=== PATIENT | female | born 1965 | race Caucasian/White ===

== ENCOUNTER 2020-10-18 20:44 | Inpatient (IN) | payer OTHER, SELFPAY ==
[2020-10-18] MEDS ORDERED: MORPHINE 4 MG/ML SYR ONE (22:11)
[2020-10-18] MEDS ORDERED: ONDANSETRON 4 MG/2 ML VIAL ONE (22:11)
[2020-10-18 22:16] LABS: Absolute Lymphocytes (CBC) 2.2 K/uL (0.7-4.9); Basophils % 1.1 % (0-1.3); Hematocrit 31.7 % (36.0-45.0); Lymphocytes % 36.2 % (15.3-44.8); RBC Red Blood Cell Count 3.59 M/uL (3.86-4.86)
[2020-10-18 22:38] LABS: ALT/SGPT 130 U/L (12-78); AST/SGOT 131 U/L (15-37); Albumin 3.4 g/dL (3.4-5.0); Alkaline Phosphatase 124 U/L (45-117); BUN Blood Urea Nitrogen 14 mg/dL (7-18); Bicarbonate 28 mmol/L (21-32); Bilirubin Direct < 0.1 mg/dL (0-0.2); Bilirubin Total 0.2 mg/dL (0.2-1.0); CKMB Creatine Kinase MB < 1.0 ng/mL (1.0-3.6); Creatine Phosphokinase 75 U/L (26-192); Glucose Level 92 mg/dL (74-106); Lipase 95 U/L (73-393); Magnesium 2.4 mg/dL (1.8-2.4); Potassium 3.7 mmol/L (3.5-5.1); Protein, Total 7.1 g/dL (6.4-8.2); Sodium Level 142 mmol/L (136-145); Troponin (Emerg Dept Use Only) < 0.02 ng/mL (0.0-0.045)
[2020-10-18 22:46] LABS: Protime INR 0.86
[2020-10-18] MEDS ORDERED: FENTANYL CITR 100 MCG/2 ML ONE (22:57)
--- NOTE | 2020-10-18 23:14 | EDPHYS ---
Physician Documentation [facility] Name: Bonny Amaya Age: 54 yrs Sex: Female : 1965 Arrival Date: 10/18/2020 Time: 20:52 Bed 26 Private MD: ED Physician Anthony Mallory HPI: 10/18 23:24 This 54 yrs old Female presents to ER via Ambulatory with complaints of tw4 Passed Out Prior To Arrival, Fall Injury, Rib Pain. 23:24 The patient has experienced syncope. Onset: The symptoms/episode began/occurred today. tw4 Duration: This was a single episode. Associated injury: The patient did not suffer any apparent associated injury. Associated signs and symptoms: The patient has no apparent associated signs or symptoms. The patient has not experienced similar symptoms in the past. 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 - Social history:: Smoking status: Patient denies any tobacco usage or history of. Patient/guardian denies using alcohol, street drugs. ROS: 23:24 Neuro: Positive for syncope. tw4 23:24 Constitutional: Negative for fever, chills, and weight loss, Eyes: Negative for injury, tw4 pain, redness, and discharge, Respiratory: Negative for shortness of breath, cough, wheezing, and pleuritic chest pain, Abdomen/GI: Negative for abdominal pain, nausea, vomiting, diarrhea, and constipation, Back: Negative for injury and pain, MS/Extremity: Negative for injury and deformity, Skin: Negative for injury, rash, and discoloration. 23:24 Cardiovascular: Positive for chest pain, Negative for edema, orthopnea, palpitations, paroxysmal nocturnal dyspnea. Exam: 23:24 Constitutional: This is a well developed, well nourished patient who is awake, alert, tw4 and in no acute distress. Head/Face: Normocephalic, atraumatic. Cardiovascular: Regular rate and rhythm with a normal S1 and S2. No gallops, murmurs, or rubs. Normal PMI, no JVD. No pulse deficits. Respiratory: Lungs have equal breath sounds bilaterally, clear to auscultation and percussion. No rales, rhonchi or wheezes noted. No increased work of breathing, no retractions or nasal flaring. Abdomen/GI: Soft, non-tender, with normal bowel sounds. No distension or tympany. No guarding or rebound. No evidence of tenderness throughout. Back: No spinal tenderness. No costovertebral tenderness. Full range of motion. Skin: Warm, dry with normal turgor. Normal color with no rashes, no lesions, and no evidence of cellulitis. MS/ Extremity: Pulses equal, no cyanosis. Neurovascular intact. Full, normal range of motion. Neuro: Awake and alert, GCS 15, oriented to person, place, time, and situation. Cranial nerves II-XII grossly intact. Motor strength 5/5 in all extremities. Sensory grossly intact. Cerebellar exam normal. Normal gait. 23:24 Chest/axilla: Inspection: normal, Palpation: tenderness, that is moderate, of the left breast. Vital Signs: 21:15 BP 131 / 65; Pulse 78; Resp 20 S; Temp 98.4(O); Pulse Ox 97% on R/A; Weight 86.18 kg bb (R); Height 5 ft. 9 in. (175.26 cm) (R); Pain 9/10; 22:40 BP 100 / 62; Pulse 74; Resp 16; Pulse Ox 100% on R/A; zb 10/19 01:03 BP 106 / 66; Pulse 75; Resp 20 S; Temp 97.7(O); Pulse Ox 98% on R/A; Pain 6/10; bb 10/18 21:15 Body Mass Index 28.06 (86.18 kg, 175.26 cm) bb MDM: 10/18 21:15 Patient medically screened. tw4 23:24 Differential Diagnosis: aortic aneurysm, emotional response, GI bleed, idiopathic tw4 syncope, , vasovagal episode. Data reviewed: vital signs, nurses notes. Data interpreted: Pulse oximetry: Interpretation: normal. Counseling: I had a detailed discussion with the patient and/or guardian regarding: the historical points, exam findings, and any diagnostic results supporting the discharge/admit diagnosis. Physician consultation: Manish Machuca DO regarding admission, to the telemetry unit. patient's condition, and will see patient in ED. 10/18 21:04 Order name: Basic Metabolic Panel tw 10/18 21:04 Order name: CBC with Diff tw 10/18 21:04 Order name: Ckmb tw 10/18 21:05 Order name: CPK tw 10/18 21:05 Order name: Hepatic Function tw 10/18 21:05 Order name: Lipase tw 10/18 21:05 Order name: Magnesium tw 10/18 21:05 Order name: Protime (+inr) tw 10/18 21:05 Order name: Ptt, Activated tw 10/18 21:05 Order name: Troponin (emerg Dept Use Only) tw 10/18 21:05 Order name: Basic Metabolic Panel EDN[facility] 10/18 21:05 Order name: CKMB Creatine Kinase MB EDNJ 10/18 23:21 Order name: COVID-19 : Document "Date of Symptom Onset" if Symptomatic. tw4 10/18 21:04 Order name: CT Head C Spine tw4 10/18 21:05 Order name: EKG; Complete Time: 21:06 tw4 10/18 21:16 Order name: CT Chest Wo Con tw 10/19 00:45 Order name: CONS Physician Consult EDN[facility] 10/19 00:49 Order name: SARS-COV-2 RT PCR EDMS Administered Medications: 22:02 Drug: morphine 4 mg {Note: RASS +2.} Route: IVP; Site: left antecubital; zb 22:30 Follow up: Response: No adverse reaction; Pain is decreased; RASS: Alert and Calm (0) zb 22:03 Drug: Zofran (Ondansetron) 4 mg Route: IVP; Site: left antecubital; zb 22:34 Follow up: Response: No adverse reaction; Marked relief of symptoms; Nausea is decreasedzb 22:39 Drug: fentaNYL (PF) 50 mcg {Note: RASS +1.} Route: IVP; Site: left antecubital; zb 10/19 00:58 Follow up: Response: No adverse reaction bb Disposition: 10/18/20 23:14 Hospitalization ordered by Manish Machuca for Observation. Preliminary diagnosis is Syncope and collapse. - Bed requested for Telemetry/MedSurg (observation). - Status is Observation. bb - Condition is Stable. - Problem is an ongoing problem. - Symptoms have improved. Signatures: Dispatcher [employer] EDN[facility] Sona Maloney RN RN Zarina Philip RN RN Anthony Zuñiga MD MD tw4 Columba Caballero RN RN zb Corrections: (The following items were deleted from the chart) 10/18 23:26 23:24 Constitutional: Negative for fever, chills, and weight loss, Eyes: Negative for tw4 injury, pain, redness, and discharge, Cardiovascular: Negative for chest pain, palpitations, and edema, Respiratory: Negative for shortness of breath, cough, wheezing, and pleuritic chest pain, Abdomen/GI: Negative for abdominal pain, nausea, vomiting, diarrhea, and constipation, Back: Negative for injury and pain, MS/Extremity: Negative for injury and deformity, Skin: Negative for injury, rash, and discoloration, tw4 23:37 23:22 CORONAVIRUS ordered. [facility] 10/19 00:49 10/18 23:14 Hospitalization Ordered by Manihs Machuca DO for Observation. Preliminary mw diagnosis is Syncope and collapse. Bed requested for Telemetry/MedSurg (observation). Status is Observation. Condition is Stable. Problem is an ongoing problem. Symptoms have improved. tw4 10/19 01:44 00:49 10/18/2020 23:14 Hospitalization Ordered by Manish Machuca DO for Observation. bb Preliminary diagnosis is Syncope and collapse. Bed requested for Telemetry/MedSurg (observation). Status is Observation. Condition is Stable. Problem is an ongoing problem. Symptoms have improved. mw
--- NOTE | 2020-10-18 23:14 | ER ---
Nurse's Notes [facility] Name: Bonny Amaya Age: 54 yrs Sex: Female : 1965 Arrival Date: 10/18/2020 Time: 20:52 Bed 26 Private MD: Diagnosis: Syncope and collapse Presentation: 10/18 21:15 Chief complaint: Patient states: she has a history of syncopal episodes since she had bb gastric bypass a year ago with multiple falls and injuries last night pt had a syncopal episode and fell and is now having left sided rib pain 01/22. Coronavirus screen: At this time, the client does not indicate any symptoms associated with coronavirus-19. Ebola Screen: No symptoms or risks identified at this time. Initial Sepsis Screen: Does the patient meet any 2 criteria? No. Patient's initial sepsis screen is negative. Does the patient have a suspected source of infection? No. Patient's initial sepsis screen is negative. Risk Assessment: Do you want to hurt yourself or someone else? Patient reports no desire to harm self or others. Onset of symptoms was October 17, 2020. 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 - Social history:: Smoking status: Patient denies any tobacco usage or history of. Patient/guardian denies using alcohol, street drugs. Screenin:41 Fall Risk Fall in past 12 months (25 points). No secondary diagnosis (0 pts). IV access zb (20 points). Ambulatory Aid- None/Bed Rest/Nurse Assist (0 pts). Gait- Weak (10 pts.). Mental Status- Oriented to own ability (0 pts). Total Lanier Fall Scale indicates High Risk Score (45 or more points). Fall prevention measures have been instituted. Side Rails Up X 2 Placed Close to Nursing Station Frequent Obs/Assessments Occuring Family Present and informed to notify staff if the need to leave the bedside As available patient and family educated on Fall Prevention Program and Strategies. 21:41 Abuse screen: Denies threats or abuse. Denies injuries from another. Nutritional zb screening: No deficits noted. Tuberculosis screening: No symptoms or risk factors identified. Assessment: 21:20 General: Appears uncomfortable, Behavior is fussy. Pain: Complains of pain in diaphragm zb and left breast Pain does not radiate. Pain currently is 8 out of 10 on a pain scale. at worst was 10 out of 10 on a pain scale. Quality of pain is described as sharp, tender, Pain began 1 hour ago. Neuro: Level of Consciousness is awake, alert, obeys commands, Oriented to person, place, time, situation, Moves all extremities. Full function. Cardiovascular: Patient's skin is warm and dry. Respiratory: Airway is patent Respiratory effort is even, unlabored, Respiratory pattern is regular, symmetrical. GI: Abdomen is round Reports nausea. Derm: Skin is intact, is healthy with good turgor, Skin is dry, Skin is normal. Musculoskeletal: Circulation, motion, and sensation intact. Reports pain in left lateral anterior chest and left breast. 10/19 01:03 Reassessment: Patient is alert, oriented x 3, equal unlabored respirations, skin bb warm/dry/pink. pt continues to have left rib pain 6/10. IV site intact no erythema or edema noted. 01:06 Reassessment: report called to [facility] for room 207. bb Vital Signs: 10/18 21:15 BP 131 / 65; Pulse 78; Resp 20 S; Temp 98.4(O); Pulse Ox 97% on R/A; Weight 86.18 kg bb (R); Height 5 ft. 9 in. (175.26 cm) (R); Pain 9/10; 22:40 BP 100 / 62; Pulse 74; Resp 16; Pulse Ox 100% on R/A; zb 10/19 01:03 BP 106 / 66; Pulse 75; Resp 20 S; Temp 97.7(O); Pulse Ox 98% on R/A; Pain 6/10; bb 10/18 21:15 Body Mass Index 28.06 (86.18 kg, 175.26 cm) bb ED Course: 10/18 20:52 Patient arrived in ED. cf2 21:00 Columba Caballero RN is Primary Nurse. zb 21:02 Anthony Mallory MD is Attending Physician. tw4 21:17 Triage completed. bb 21:24 Arm band placed on Patient placed in an exam room, on a stretcher, on pulse oximetry. bb 21:41 Patient has correct armband on for positive identification. Placed in gown. Bed in low zb position. Call light in reach. secured entrance monitor on. Pulse ox on. NIBP on. Door closed. Noise minimized. 21:51 CT Head C Spine In Process Unspecified. EDMS 21:51 CT Chest Wo Con In Process Unspecified. EDMS 22:03 Initial lab(s) drawn, by me, sent to lab. Inserted saline lock: 20 gauge in left zb antecubital area, using aseptic technique. Blood collected. 23:13 Manish Machuca DO is Hospitalizing Provider. tw4 10/19 01:03 No provider procedures requiring assistance completed. Patient admitted, IV remains in bb place. Administered Medications: 10/18 22:02 Drug: morphine 4 mg {Note: RASS +2.} Route: IVP; Site: left antecubital; zb 22:30 Follow up: Response: No adverse reaction; Pain is decreased; RASS: Alert and Calm (0) zb 22:03 Drug: Zofran (Ondansetron) 4 mg Route: IVP; Site: left antecubital; zb 22:34 Follow up: Response: No adverse reaction; Marked relief of symptoms; Nausea is decreasedzb 22:39 Drug: fentaNYL (PF) 50 mcg {Note: RASS +1.} Route: IVP; Site: left antecubital; zb 10/19 00:58 Follow up: Response: No adverse reaction bb Outcome: 10/18 23:14 Decision to Hospitalize by Provider. tw4 10/19 01:04 Admitted to Tele accompanied by tech, via wheelchair, room 207, with chart. bb Condition: stable Instructed on the need for admit. 01:44 Patient left the ED. bb Signatures: Dispatcher [employer] Zarina Ball RN RN Anthony Zuñiga MD MD tw4 Armida Khalil 2 Columba Caballero RN RN zb Corrections: (The following items were deleted from the chart) 10/18 22:03 22:02 morphine 4 mg IVP in right antecubital zb zb 22:42 21:20 GI: Abdomen is round zb zb
[2020-10-19] MEDS ORDERED: DIPHENHYDRAMINE 25 MG TAB/CAP PO PRN (01:11)
[2020-10-19] MEDS ORDERED: ACETAMINOPHEN 500 MG TAB PO PRN (01:11)
[2020-10-19] MEDS ORDERED: ONDANSETRON 4 MG/2 ML VIAL IV PRN (01:11)
[2020-10-19 01:47] VITALS: BMI 29.4
[2020-10-19] MEDS: NA CHLORIDE 0.9% 1,000 ML IV SCH ×2 (01:51→20:37)
[2020-10-19] MEDS: FENTANYL CITR 100 MCG/2 ML IV PRN ×4 (02:02→21:16)
--- NOTE | 2020-10-19 02:20 | P.HP ---
Certification for Inpatient Patient admitted to: Observation With expected LOS: <2 Midnights Patient will require the following post-hospital care: None Practitioner: I am a practitioner with admitting privileges, knowledge of patient current condition, hospital course, and medical plan of care. Services: Services provided to patient in accordance with Admission requirements found in Title 42 Section 412.3 of the Code of Federal Regulations Patient History Date of Service: 10/19/20 Reason for admission: syncope History of Present Illness: Ms. Amaya is a 54 yo F with asthma, RA, DM, RLS, and dysautonomia (after gastric bypass surgery) here today for syncopal episode. She reports pain in her ribs and her back. She says she falls without warning. Family members say that before episodes, she starts to slur her words, kadeem lsay her legs hurt, and that she is thirsty. If she loses consciousness, it's for 30 seconds to 1 minute. Afterwards, she will be fatigued for ~3 hours and will not have recollection of the event. Her believes episodes are more frequent with stress and lack of sleep. Episodes occur 3-5x a week. She has been told the dysautonomia is a side effect of losing weight too fast after gastric bypass surgery. She had a positive tilt table test and has been ruled out for POTS. H/H 10.8. AST 131, ALT 130. Allergies aspirin Allergy (Verified 10/19/20 01:53) Hives bee pollen Allergy (Verified 10/19/20 01:14) Hives furosemide Allergy (Verified 10/19/20 01:53) Hives ibuprofen Allergy (Verified 10/19/20 01:14) Hives - Past Medical/Surgical History Has patient received pneumonia vaccine in the past: No Diabetic: Yes -: asthma -: Rheumathoid arthritis -: restless leg syndrome -: dysautonomia -: DM -: gastric bypass -: tubal ligation -: dissectomy lower back -: hernial tendon -: carpal tunnel -: pins and screws on clavicle -: appy -: cholecystectomy - Family History Father -: Heart disease Mother -: Diabetes Sister Notes: RA - Social History Smoking Status: Never smoker Alcohol use: No CD- Drugs: No Caffeine use: Yes Place of Residence: Home Review of Systems 10-point ROS is otherwise unremarkable Musculoskeletal: Back Pain, Other (rib paini) Physical Examination - Vital Signs Temperature: 97.1 F Blood Pressure: 110/53 Pulse: 77 Respirations: 16 Pulse Ox (%): 93 - Physical Exam General: Alert, In no apparent distress HEENT: Atraumatic, PERRLA, Mucous membr. moist/pink, EOMI, Sclerae nonicteric Neck: Supple, 2+ carotid pulse no bruit, No LAD, Without JVD or thyroid abnormality Respiratory: Clear to auscultation bilaterally, Normal air movement Cardiovascular: Regular rate/rhythm, Normal S1 S2 Gastrointestinal: Normal bowel sounds, No tenderness Musculoskeletal: No clubbing, No swelling, No contractures, No erythema, No warmth, Tenderness Integumentary: No rashes, No breakdown, No significant lesion, No erythema, No warmth, No cyanosis, Tenderness/swelling Neurological: Normal gait, Normal speech, Normal strength at 5/5 x4 extr, Normal tone, Normal affect - Studies Laboratory Data (last 24 hrs) 10/18/20 22:01: PT 9.9, INR 0.86, APTT 26.1 10/18/20 22:01: WBC 6.20, Hgb 10.8 L, Hct 31.7 L, Plt Count 267 10/18/20 22:01: Sodium 142, Potassium 3.7, BUN 14, Creatinine 0.54 L, Glucose 92, Magnesium 2.4, Total Bilirubin 0.2, AST 131 H, ALT 130 H, Alkaline Phosphatase 124 H, Lipase 95 Assessment and Plan - Problems (Diagnosis) (1) Asthma Current Visit: Yes Status: Chronic Qualifiers: Asthma severity: unspecified severity Asthma persistence: unspecified Asthma complication type: uncomplicated Qualified Code(s): J45.909 - Unspecified asthma, uncomplicated (2) Rheumatoid arthritis Current Visit: Yes Status: Chronic Qualifiers: Rheumatoid arthritis location: unspecified site Rheumatoid factor presence: unspecified presence Qualified Code(s): M06.9 - Rheumatoid arthritis, unspecified (3) T2DM (type 2 diabetes mellitus) Current Visit: Yes Status: Chronic Qualifiers: Diabetes mellitus detention insulin use: without rodent exterminator use Diabetes mellitus complication status: without complication Qualified Code(s): E11.9 - Type 2 diabetes mellitus without complications (4) RLS (restless legs syndrome) Current Visit: Yes Status: Chronic (5) Dysautonomia Current Visit: Yes Status: Chronic - Plan neurology consulted cardiology consulted orthostatic vital signs in the AM on telemetry anemia workup hepatitis panel pending pain management as needed reconcile and continue home medications Discharge Plan: Home Plan to discharge in: 24 Hours - Advance Directives Does patient have a Living Will: No Does patient have a Durable POA for Healthcare: No - Code Status/Comfort Care Code Status Assessed: Yes (full code) Critical Care: No Time Spent Managing Pts Care (In Minutes): 70
[2020-10-19 04:56] LABS: Absolute Lymphocytes (CBC) 1.4 K/uL (0.7-4.9); Basophils % 0.8 % (0-1.3); Lymphocytes % 31.6 % (15.3-44.8)
[2020-10-19 05:09] LABS: Ferritin 133.5 ng/mL (8-388); Folic Acid, (Folate) > 20.0 ng/mL (3.1-17.5); Transferrin 278 mg/dL (200-360)
[2020-10-19 05:20] LABS: Albumin 3.3 g/dL (3.4-5.0); Alkaline Phosphatase 160 U/L (45-117); BUN Blood Urea Nitrogen 12 mg/dL (7-18); Bicarbonate 33 mmol/L (21-32); Bilirubin Total 0.3 mg/dL (0.2-1.0); Glucose Level 88 mg/dL (74-106); HDL Cholesterol 43 mg/dL (40-60); LDL Cholesterol, Calculated 78 (<130); Potassium 4.4 mmol/L (3.5-5.1); Protein, Total 6.7 g/dL (6.4-8.2); Sodium Level 144 mmol/L (136-145)
[2020-10-19 05:22] LABS: ALT/SGPT 524 U/L (12-78); AST/SGOT 870 U/L (15-37)
[2020-10-19 06:52] LABS: Creatine Phosphokinase 76 U/L (26-192)
[2020-10-19] MEDS ORDERED: HYDROCODONE/APAP 7.5/325 MG TAB PO PRN (07:18)
[2020-10-19] MEDS ORDERED: TRAMADOL HCL 50 MG TAB PO PRN (07:18)
[2020-10-19] MEDS: INSULIN -REGULAR HUMAN 50 UNIT/0.5 ML ML SQ SCH ×4 (07:30→20:40)
[2020-10-19] MEDS: ENOXAPARIN 40 MG/0.4 ML SQ SCH (09:00)
[2020-10-19 09:33] LABS: Urine Appearance CLEAR (Clear); Urine Bilirubin NEGATIVE (Negative); Urine Blood NEGATIVE (Negative); Urine Color YELLOW (Yellow); Urine Glucose NEGATIVE (Negative); Urine Protein NEGATIVE (Negative); Urine Specific Gravity >=1.030 (1.005-1.030); Urine pH 6.5 (5.0-7.0)
[2020-10-19] MEDS: FLUOXETINE 20 MG CAP PO SCH (09:41)
[2020-10-19] MEDS: FOLIC ACID 1 MG TABLET PO SCH (09:42)
[2020-10-19] MEDS: PRAMIPEXOLE 1 MG TAB PO SCH (09:42)
[2020-10-19 10:22] LABS: Urine Microscopic Reflex NO UMIC
[2020-10-19 10:56] LABS: Barbiturates NEGATIVE (NEGATIVE); Benzodiazepines NEGATIVE (NEGATIVE); Cocaine NEGATIVE (NEGATIVE); METHAMPHETAM NEGATIVE (NEGATIVE); Methadone NEGATIVE (NEGATIVE); Opiates POSITIVE (NEGATIVE); Phencyclidine NEGATIVE (NEGATIVE); THC Cannibis NEGATIVE (NEGATIVE)
--- NOTE | 2020-10-19 11:04 | RAD REPORT ---
EXAM DESCRIPTION: CT - Abdomen Pelvis W/Wo Contrast - 10/19/2020 8:06 am CLINICAL HISTORY: Abdominal pain/elevated liver function tests COMPARISON: None TECHNIQUE: Computed axial tomography of the abdomen and pelvis was obtained. Unenhanced and enhanced images were taken. 100 cc Isovue 300 was administered intravenously. Images were obtained in arteria l, venous and delayed phases. Coronal reconstruction was performed. Oral contrast was not given limit evaluation of bowel All CT scans are performed using dose optimization technique as appropriate and may include automated exposure control or mA/KV adjustment according to patient size. FINDINGS: Mild fatty liver The Spleen, pancreas, adrenals and kidneys appear unremarkable. Postsurgical changes involve the stomach. No adnexal mass noted. No evidence diverticulitis cholecystectomy. Biliary tree normal caliber IMPRESSION: Mild fatty liver
--- NOTE | 2020-10-19 11:47 | RAD REPORT ---
EXAM DESCRIPTION: CT - Head C Spine Mpr Wo Con - 10/19/2020 9:18 am CLINICAL HISTORY: Syncope and fall. TECHNIQUE: Axial, coronal, and sagittal images through the brain were performed in the absence of in travenous contrast. CT of the cervical spine was performed without contrast. Axial, coronal, and sagittal reconstructions were created and sent to PACS. These exams were performed according to our departmental dose-optimization program which includes use of Automated Exposure Control, adjustment of the mA and/or kV according to patient size and/or use o f iterative reconstruction technique. COMPARISON: None. FINDINGS: CT Head: The brain parenchyma appears unremarkable. There is no intra-axial or extra-axial bleed seen. There i s no mass or mass effect. The ventricles are normal in size shape and configuration. The orbital cont ents appear unremarkable. The visualized paranasal sinuses and mastoid air cells are patent. No fracture is identified. CT cervical spine: No acute osseous abnormality identified. Vertebral body height and alignment are maintained. No atlan todental interval widening. Atlantoaxial alignment is maintained. C2-C3: Tiny posterior disc osteophyte complex. No significant central canal or neuroforaminal narrowi ng. C3-C4: Small posterior disc osteophyte complex resulting in mild narrowing of the central canal to 0. 6 cm AP. No significant central canal or neuroforaminal narrowing. C4-C5: Tiny posterior disc osteophyte complex. Moderate right neuroforaminal narrowing due to facet h ypertrophy. Mild left neuroforaminal narrowing due to uncinate hypertrophy. C5-C6: Small posterior disc osteophyte complex. Borderline narrowing of the central canal to 0.8 cm A P. No significant neuroforaminal narrowing. C6-C7: Posterior disc osteophyte complex in the right para midline region results in mild narrowing o f the central canal to 0.7 cm AP. No significant neuroforaminal narrowing. Paraspinal soft tissues: Left thyroid lobe 0.7 cm hypodense nodule (no follow-up imaging is recommend ed). IMPRESSION: 1. No acute intracranial abnormality identified. 2. No acute osseous abnormality identified in the cervical spine. Degenerative changes, as describe d. Electronically signed by: Safia Sotelo MD 10/18/2020 10:22 PM CDT Due to temporary technical issues with the PACS/Fluency reporting system, reports are being signed by the in house radiologist without review as a courtesy to ensure prompt reporting. The interpreting r adiologist is fully responsible for the content of the report.
--- NOTE | 2020-10-19 11:49 | RAD REPORT ---
EXAM DESCRIPTION: CT - Thorax Wo Nima - 10/19/2020 9:16 am CLINICAL HISTORY: PAIN. Fall with right-sided and mid chest pain due to a syncopal episode. COMPARISON: None. TECHNIQUE: CT of the chest was performed without contrast. Axial, coronal, and sagittal reconstructi ons were created and sent to PACS. This exam was performed according to our departmental dose-optimization program, which includes autom ated exposure control, adjustment of the mA and/or kV according to patient size and/or use of iterati ve reconstruction technique. FINDINGS: Lungs and pleura: No pulmonary consolidation. No pleural effusion. No pneumothorax. Anteri or right upper lobe 0.4 x 0.2 cm pulmonary nodule. Mediastinum and neck: No mediastinal lymphadenopathy by CT size criteria. Unremarkable appearance of the partially imaged thyroid gland. Cardiovascular: No cardiomegaly or pericardial effusion. No thoracic aortic aneurysm. Abdomen: Changes of Torey-en-Y gastric bypass. Prior cholecystectomy. Partially imaged hepatomegaly, m easuring at least 19 cm in length. Musculoskeletal: Prior healed left clavicular fracture status post internal fixation. No acute fractu re is identified. No concerning osseous abnormality. IMPRESSION: 1. No acute abnormality identified in the chest. 2. Right upper lobe 3 mm right upper lobe solid pulmonary nodule. If patient is low risk for malign shamir, no routine follow-up imaging is recommended; if patient is high risk for malignancy, a non-cont rast Chest CT at 12 months is optional. If performed and the nodule is stable at 12 months, no furthe r follow-up is recommended. These guidelines do not apply to immunocompromised patients and patients with cancer. Follow up in patients with significant comorbidities as clinically warranted. For lung c ancer screening, adhere to Lung-RADS guidelines. Reference: Radiology. 2017; 284(1):228-43. Electronically signed by: Safia Sotelo MD 10/18/2020 10:16 PM CDT Due to temporary technical issues with the PACS/Fluency reporting system, reports are being signed by the in house radiologist without review as a courtesy to ensure prompt reporting. The interpreting r adiologist is fully responsible for the content of the report.
[2020-10-19] MEDS ORDERED: PRAMIPEXOLE 1 MG TAB PO SCH ×2 (12:00→21:00)
--- NOTE | 2020-10-19 12:42 | CON ---
Date of Consultation: 10/19/2020 Admitted on 10/19/[address] Machuca service for syncope. I saw her on the same day. History Of Present Illness: Ms. Amaya is 54, has had a history of dysautonomia, rheumatoid arthriti s, diabetes mellitus, and gastric bypass. Apparently, she has suffered with dysautonomia for many ye ars and has tried Florinef and has tried midodrine up to 15 mg every 6 hours and none of those worked . 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 Came in with sync ope. Neurological workup so far has been negative. Cardiac workup has been negative. The only thin g that has shown on her workup is that she has significantly elevated liver function enzymes. She jacob s a hepatitis panel pending. No chest pain. No nausea, vomiting, diaphoresis, PND, orthopnea, or pe sandip edema or palpitation reported. Allergies: SHE IS ALLERGIC TO ASPIRIN, BEE POLLEN, LASIX AND MOTRIN. Medications: She takes Mestinon, methotrexate and Plaquenil at home. Physical Examination: I did not examine the patient myself. According to records by Dr. Machuca, her physical examination w as normal. Diagnostic Data: As stated earlier. Impression And Plan: Dysautonomia causing her syncope, had failed medical therapy. Has followup wit h primary care and steam cleaning machine operator in the future. There is an echocardiogram pending, although I doubt we are dealing with any cardiac issue at all here. She needs to have a liver enzyme workup. The res t of her issues including rheumatoid arthritis and diabetes are fairly stable. I will sign off her case for now. DEIDRE/BRIDGER Voice ID: [id number] Report ID: [id number]
[2020-10-19 13:45] LABS: Albumin 3.4 g/dL (3.4-5.0); Bilirubin Direct 0.2 mg/dL (0-0.2); Bilirubin Total 0.4 mg/dL (0.2-1.0); Protein, Total 6.5 g/dL (6.4-8.2)
--- NOTE | 2020-10-19 14:04 | P.PN ---
Subjective Date of Service: 10/19/20 Chief Complaint: syncope Subjective: Improving, Doing well Physical Examination - Vital Signs Temperature: 98.0 F Blood Pressure: 87/52 Pulse: 65 Respirations: 17 Pulse Ox (%): 95 - Studies Laboratory Data (last 24 hrs) 10/18/20 22:01: PT 9.9, INR 0.86, APTT 26.1 10/18/20 22:01: WBC 6.20, Hgb 10.8 L, Hct 31.7 L, Plt Count 267 10/18/20 22:01: Sodium 142, Potassium 3.7, BUN 14, Creatinine 0.54 L, Glucose 92, Magnesium 2.4, Total Bilirubin 0.2, AST 131 H, ALT 130 H, Alkaline Phosphatase 124 H, Lipase 95 Assessment & Plan Discharge Plan: Home Plan to discharge in: 24 Hours Physician Review Additional Text: Physical exam: Patient alert, cooperative Heart: Regular rate rhythm Lungs: Clear to auscultation Abdomen: Soft nontender nondistended Extremities: Good range of motion to upper lower extremities. Some bruising noted to the right hip. Impression: Fatigue, syncope, fall with history of syncope related to autonomic dysfunction Rheumatoid arthritis Diabetes mellitus type 2 Restless leg syndrome Elevated liver function with noted fatty liver Plan: Fatigue, syncope, fall with history of syncope related to autonomic dysfunction: Patient is had extensive workup in [place] including Neurology, Card iology. Spoke with Cardiology to today. She has been on multiple medications the past without any success on medication. No intervention required at this time. Continue monitor closely. Encourage oral intake. Await to discuss further with Neurology for recommendation. Rheumatoid arthritis: Hold Plaquenil for now due to elevated liver function. Diabetes mellitus type 2: Accu-Cheks in place. Provide sliding scale. Restless leg syndrome: Continue home medication Elevated liver function with noted fatty liver: Repeat liver function tests improved. Fatty liver noted. No evidence of obstruction. Will discuss with GI. Hepatitis panel obtained. Await recommendations from GI. Time Spent Managing Pts Care (In Minutes): 55
[2020-10-19] MEDS: LIDOCAINE 4% PATCH TOP SCH (14:58)
[2020-10-19] MEDS: levETIRAcetam 500 MG TAB PO SCH (20:36)
[2020-10-19] MEDS ORDERED: GABAPENTIN 300 MG CAP PO SCH (21:00)
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
[2020-10-20] MEDS: FENTANYL CITR 100 MCG/2 ML IV PRN ×2 (03:02→07:13)
[2020-10-20 06:16] LABS: Absolute Lymphocytes (CBC) 1.5 K/uL (0.7-4.9); Basophils % 0.7 % (0-1.3); Hematocrit 33.7 % (36.0-45.0); Lymphocytes % 26.2 % (15.3-44.8); MPV 8.4 fL (7.6-11.3); RBC Red Blood Cell Count 3.72 M/uL (3.86-4.86)
[2020-10-20 06:25] LABS: AST/SGOT 156 U/L (15-37); Albumin 3.2 g/dL (3.4-5.0); Alkaline Phosphatase 153 U/L (45-117); BUN Blood Urea Nitrogen 12 mg/dL (7-18); Bicarbonate 31 mmol/L (21-32); Bilirubin Total 0.3 mg/dL (0.2-1.0); Glucose Level 94 mg/dL (74-106); Magnesium 2.3 mg/dL (1.8-2.4); Phosphorus 3.8 mg/dL (2.5-4.9); Potassium 4.1 mmol/L (3.5-5.1); Protein, Total 6.5 g/dL (6.4-8.2); Sodium Level 145 mmol/L (136-145)
[2020-10-20 06:29] LABS: ALT/SGPT 335 U/L (12-78)
[2020-10-20] MEDS: NA CHLORIDE 0.9% 1,000 ML IV SCH ×2 (07:12→07:13)
[2020-10-20] MEDS: INSULIN -REGULAR HUMAN 50 UNIT/0.5 ML ML SQ SCH (07:30)
--- NOTE | 2020-10-20 08:17 | ECHO ---
HEIGHT: 5 ft 9 in WEIGHT: 199 lb 3.2 oz DATE OF STUDY: 10/19/[address]: Brandon Pierce MD 2-DIMENSIONAL: YES M.MODE: YES DOPPLER: YES COLOR FLOW: YES TDS: NO PORTABLE: NO DEFINITY: NO BUBBLE STUDY: NO DIAGNOSIS: SYNCOPE CARDIAC HISTORY: CATHERIZATION: NO SURGERY: NO PROSTHETIC VALVE: NO PACEMAKER: NO MEASUREMENTS (cm) DIASTOLIC (NORMALS) SYSTOLIC (NORMALS) IVSd 0.8 (0.6-1.2) LA Diam 3.0 (1.9-4.0) LVEF 55-60% LVIDd 5.2 (3.5-5.7) LVIDs 3.8 (2.0-3.5) %FS 27% LVPWd 0.9 (0.6-1.2) Ao Diam 2.6 (2.0-3.7) 2 DIMENSIONAL ASSESSMENT: RIGHT ATRIUM: NORMAL LEFT ATRIUM: NORMAL RIGHT VENTRICLE: NORMAL LEFT VENTRICLE: NORMAL TRICUSPID VALVE: NORMAL MITRAL VALVE: NORMAL PULMONIC VALVE: NORMAL AORTIC VALVE: NORMAL PERICARDIAL EFFUSION: NONE AORTIC ROOT: NORMAL LEFT VENTRICULAR WALL MOTION: NORMAL DOPPLER/COLOR FLOW: NORMAL COMMENTS: NORMAL LEFT VENTRICULAR EJECTION FRACTION 55-60%. NORMAL WALL MOTION. NORMAL DIASTOLIC FUNCTION. TECHNOLOGIST: Ana BRADEN
--- NOTE | 2020-10-20 08:19 | P.DS ---
Admission Date: 10/19/20 Discharge Date: 10/20/20 Primary Care Provider: Garth Disposition: ROUTINE DISCHARGE Discharge Condition: GOOD Reason for Admission: syncope Consultations: Cardiology-Dr. Pierce Neurology-Dr. Osborne Procedures: COVID: Negative CT Head/Spine: COMPARISON: None. FINDINGS: CT Head: The brain parenchyma appears unremarkable. There is no intra-axial or extra- axial bleed seen. There is no mass or mass effect. The ventricles are normal in size shape and configuration. The orbital contents appear unremarkable. The visualized paranasal sinuses and mastoid air cells are patent. No fracture is identified. CT cervical spine: No acute osseous abnormality identified. Vertebral body height and alignment are maintained. No atlantodental interval widening. Atlantoaxial alignment is maintained. C2-C3: Tiny posterior disc osteophyte complex. No significant central canal or neuroforaminal narrowing. C3-C4: Small posterior disc osteophyte complex resulting in mild narrowing of the central canal to 0.6 cm AP. No significant central canal or neuroforaminal narrowing. C4-C5: Tiny posterior disc osteophyte complex. Moderate right neuroforaminal narrowing due to facet hypertrophy. Mild left neuroforaminal narrowing due to uncinate hypertrophy. C5-C6: Small posterior disc osteophyte complex. Borderline narrowing of the central canal to 0.8 cm AP. No significant neuroforaminal narrowing. C6-C7: Posterior disc osteophyte complex in the right para midline region results in mild narrowing of the central canal to 0.7 cm AP. No significant neuroforaminal narrowing. Paraspinal soft tissues: Left thyroid lobe 0.7 cm hypodense nodule (no follow-up imaging is recommended). IMPRESSION: 1. No acute intracranial abnormality identified. 2. No acute osseous abnormality identified in the cervical spine. Degenerative changes, as described. CT chest: FINDINGS: Lungs and pleura: No pulmonary consolidation. No pleural effusion. No pneumothorax. Anterior right upper lobe 0.4 x 0.2 cm pulmonary nodule. Mediastinum and neck: No mediastinal lymphadenopathy by CT size criteria. Un remarkable appearance of the partially imaged thyroid gland. Cardiovascular: No cardiomegaly or pericardial effusion. No thoracic aortic aneurysm. Abdomen: Changes of Torey-en-Y gastric bypass. Prior cholecystectomy. Partially imaged hepatomegaly, measuring at least 19 cm in length. Musculoskeletal: Prior healed left clavicular fracture status post internal fixation. No acute fracture is identified. No concerning osseous abnormality. IMPRESSION: 1. No acute abnormality identified in the chest. 2. Right upper lobe 3 mm right upper lobe solid pulmonary nodule. If patient is low risk for malignancy, no routine follow-up imaging is recommended; if patient is high risk for malignancy, a non-contrast Chest CT at 12 months is optional. If performed and the nodule is stable at 12 months, no further follow- up is recommended. These guidelines do not apply to immunocompromised patients and patients with cancer. Follow up in patients with significant comorbidities as clinically warranted. For lung cancer screening, adhere to Lung-RADS guidelines. Reference: Radiology. 2017; 284(1):228-43. CT Ab: FINDINGS: Mild fatty liver The Spleen, pancreas, adrenals and kidneys appear unremarkable. Postsurgical changes involve the stomach. No adnexal mass noted. No evidence diverticulitis cholecystectomy. Biliary tree normal caliber IMPRESSION: Mild fatty liver ECHO: MEASUREMENTS (cm) DIASTOLIC (NORMALS) SYSTOLIC (NORMALS) IVSd 0.8 (0.6-1.2) LA Diam 3.0 (1.9-4.0) LVEF 55-60% LVIDd 5.2 (3.5-5.7) LVIDs 3.8 (2.0-3.5) %FS 27% LVPWd 0.9 (0.6-1.2) Ao Diam 2.6 (2.0-3.7) 2 DIMENSIONAL ASSESSMENT: RIGHT ATRIUM: NORMAL LEFT ATRIUM: NORMAL RIGHT VENTRICLE: NORMAL LEFT VENTRICLE: NORMAL TRICUSPID VALVE: NORMAL MITRAL VALVE: NORMAL PULMONIC VALVE: NORMAL AORTIC VALVE: NORMAL PERICARDIAL EFFUSION: NONE AORTIC ROOT: NORMAL LEFT VENTRICULAR WALL MOTION: NORMAL DOPPLER/COLOR FLOW: NORMAL COMMENTS: NORMAL LEFT VENTRICULAR EJECTION FRACTION 55-60%. NORMAL WALL MOTION. NORMAL DIASTOLIC FUNCTION. Medical Problem List: Fatigue, syncope, fall with history of syncope related to autonomic dysfunction Rheumatoid arthritis Restless leg syndrome Elevated liver function likely related to liver shock from syncope with noted fatty liver Depression Right upper lobe 3 mm solid pulmonary nodule Left thyroid 0.7 cm hypodense nodule Brief History of Present Illness: 54 yo occasion female with history of asthma, rheumatoid arthritis, restless leg syndrome and autonomic dysfunction. Patient presented with fatigue, syncopal episode. She reports pain in her ribs and her back. She says she falls without warning at times. Family members say this is happened before. Usually her legs get really tired and weak. Then she loses consciousness for a couple of seconds to minutes. Afterwards she is with increased fatigue. Patient has been worked up extensively by cardiology and neurology in [place]. She has been told this is related to her gastric bypass surgery in the past. She has been on medication for syncope without resolution. She admitted for further evaluation and treatment. Hospital Course: Patient presented with fatigue, fall and syncope. Patient with history of syncopal episodes in the past related to autonomic dysfunction. Patient has had extensive work-up in the past including audiology and neurology work-up in [place]. She was admitted for further evaluation. No further syncopal episodes noted. Orthostatics unremarkable. Patient was seen and evaluated by cardiology. Echocardiogram unremarkable. Patient had been on midodrine and Florinef without any significant change. These were eventually discontinued. Cardiology recommended no further cardiac work-up at this time. Cardiology CT head unremarkable. Neurology suspects epileptic form etiology. Neurology recommends to continue with Keppra which was initiated during her stay. Patient will continue with Keppra 250 mg 1 pill twice daily. Recommend follow-up with neurology within 1 week to [facility] hospitalization. Patient should have another ambulatory video EEG monitoring study as an outpatient to further evaluate. Recommend to increase hydration at least 8 glasses/day. Patient may use abdominal binder and above knee PHIL hose when ambulating. Recommend no driving, operating heavy machinery, swimming or being on any tall ladders unattended. Recommend to establish care locally with a PCP. Patient also had elevated liver function. Patient seen and evaluated by GI. Elevated liver function likely related to liver shock from syncopal episode. Liver function showed improvement with repeat studies. CT scan showed mild fatty liver. Education provided. Recommend to recheck labCMP in 1 to 2 weeks to monitor resolution. Patient may also follow-up with GI as an outpatient to follow-up hepatitis panel and HIV panel. Patient with rheumatoid arthritis. At discharge patient will continue with her current medication of Plaquenil 300 mg 3 times a day, methotrexate as directed, folic acid 1 mg daily, and Zanaflex 4 mg 3 times a day as needed for muscle spasm. Recommend follow-up with rheumatology as an outpatient to further monitor and address. Patient with restless leg syndrome. At discharge we will continue with her medication including Mirapex 1 mg daily, 1 mg at noontime, and 2 mg at bedtime. Recommend follow-up with neurology as an outpatient to further monitor and address. Patient had mild bruising to the hip region from the fall. Patient may continue with lidocaine patch to the area to help with pain. Fall precautions in place. Patient with depression. At discharge patient will continue with Prozac [address] scan of the chest showed a right upper lobe 3 mm solitary nodule. This likely is benign. Recommend recheck CT scan in 6 to 12 months to monitor resolution. Patient may follow-up with pulmonology as an outpatient to further address. CT chest also showed left thyroid lobe 0.7cm hypodense nodule. This is likely benign. This can be monitored as an outpatient. Vital Signs/Physical Exam: Temp Pulse Resp BP Pulse Ox 98 F 67 18 117/56 L 96 10/20/20 04:00 10/20/20 04:00 10/20/20 07:13 10/20/20 04:00 10/20/20 04:00 General: Alert, In no apparent distress, Oriented x3, Cooperative HEENT: Atraumatic Neck: Supple Respiratory: Clear to auscultation bilaterally, Normal air movement Cardiovascular: Normal pulses, Regular rate/rhythm Gastrointestinal: Normal bowel sounds, Soft and benign, Non-distended, No tenderness, No masses, No rebound, No guarding Musculoskeletal: No erythema, No tenderness, No warmth Integumentary: No tenderness/swelling Neurological: Normal speech, Normal strength at 5/5 x4 extr, Normal tone, Normal affect Laboratory Data at Discharge: WBC 5.80 K/uL (4.3-10.9) D 10/20/20 05:37 Hgb 11.0 g/dL (12.0-15.0) L 10/20/20 05:37 Hct 33.7 % (36.0-45.0) L 10/20/20 05:37 Plt Count 258 K/uL (152-406) 10/20/20 05:37 PT 9.9 SECONDS (9.5-12.5) 10/18/20 22:01 INR 0.86 10/18/20 22:01 APTT 26.1 SECONDS (24.3-36.9) 10/18/20 22:01 Sodium 145 mmol/L (136-145) 10/20/20 05:37 Potassium 4.1 mmol/L (3.5-5.1) 10/20/20 05:37 BUN 12 mg/dL (7-18) 10/20/20 05:37 Creatinine 0.45 mg/dL (0.55-1.3) L 10/20/20 05:37 Glucose 94 mg/dL (74-106) 10/20/20 05:37 Phosphorus 3.8 mg/dL (2.5-4.9) 10/20/20 05:37 Magnesium 2.3 mg/dL (1.8-2.4) 10/20/20 05:37 Total Bilirubin 0.3 mg/dL (0.2-1.0) 10/20/20 05:37 AST 156 U/L (15-37) H D 10/20/20 05:37 ALT 335 U/L (12-78) H* D 10/20/20 05:37 Alkaline Phosphatase 153 U/L (45-117) H 10/20/20 05:37 Triglycerides 192 mg/dL (<150) H 10/19/20 04:31 Cholesterol 159 mg/dL (<200) 10/19/20 04:31 HDL Cholesterol 43 mg/dL (40-60) 10/19/20 04:31 Cholesterol/HDL Ratio 3.70 10/19/20 04:31 Lipase 95 U/L (73-393) 10/18/20 22:01 Home Medications: Acetaminophen [Tylenol Extra Strength] 500 mg PO Q4H PRN 10/19/20 Doxylamine Succinate [Unisom Sleep Aid] 50 mg PO BEDTIME 10/19/20 Fluoxetine HCl [Prozac] 2 tab PO DAILY 10/19/20 Folic Acid 1 mg PO DAILY 10/19/20 Hydroxychloroquine [Plaquenil*] 300 mg PO TID 10/19/20 Methotrexate Sodium/Pf [Methotrexate 25 mg/ml Vial] 25 mg IM EVERY 7TH DAY 10/19/20 Pramipexole [Mirapex*] 1 mg PO DAILY 10/19/20 Pramipexole [Mirapex*] 1 mg PO NOON 10/19/20 Pramipexole [Mirapex*] 2 mg PO BEDTIME 10/19/20 Pyridostigmine [place] [Mestinon*] 60 mg PO BID 10/19/20 Tizanidine [Zanaflex*] 4 mg PO TID 10/19/20 Levetiracetam [Keppra] 250 mg PO BID #60 tablet 10/20/20 Lidocaine 4% Patch [Lidoderm 5% Patch*] 1 patch TOP DAILY #1 patch 10/20/20 New Medications: Levetiracetam [Keppra] 250 mg PO BID #60 tablet Lidocaine 4% Patch [Lidoderm 5% Patch*] 1 patch TOP DAILY #1 patch Physician Discharge Instructions: Patient presented with fatigue, fall and syncope. Patient with history of syncopal episodes in the past related to autonomic dysfunction. Patient has had extensive work-up in the past including audiology and neurology work-up in [place]. She was admitted for further evaluation. No further syncopal episodes noted. Orthostatics unremarkable. Patient was seen and evaluated by cardiology. Echocardiogram unremarkable. Patient had been on midodrine and Florinef without any significant change. These were eventually discontinued. Cardiology recommended no further cardiac work-up at this time. Cardiology CT head unremarkable. Neurology suspects epileptic form etiology. Neurology recommends to continue with Keppra which was initiated during her stay. Patient will continue with Keppra 250 mg 1 pill twice daily. Recommend follow-up with neurology within 1 week to [facility] hospitalization. Patient should have another ambulatory video EEG monitoring study as an outpatient to further evaluate. Recommend to increase hydration at least 8 glasses/day. Patient may use abdominal binder and above knee PHIL hose when ambulating. Recommend no driving, operating heavy machinery, swimming or being on any tall ladders unattended. Recommend to establish care locally with a PCP. Patient also had elevated liver function. Patient seen and evaluated by GI. Elevated liver function likely related to liver shock from syncopal episode. Liver function showed improvement with repeat studies. CT scan showed mild fatty liver. Education provided. Recommend to recheck labCMP in 1 to 2 weeks to monitor resolution. Patient may also follow-up with GI as an outpatient to follow-up hepatitis panel and HIV panel. Patient with rheumatoid arthritis. At discharge patient will continue with her current medication of Plaquenil 300 mg 3 times a day, methotrexate as directed, folic acid 1 mg daily, and Zanaflex 4 mg 3 times a day as needed for muscle spas m. Recommend follow-up with rheumatology as an outpatient to further monitor and address. Patient with restless leg syndrome. At discharge we will continue with her medication including Mirapex 1 mg daily, 1 mg at noontime, and 2 mg at bedtime. Recommend follow-up with neurology as an outpatient to further monitor and address. Patient had mild bruising to the hip region from the fall. Patient may continue with lidocaine patch to the area to help with pain. Fall precautions in place. Patient with depression. At discharge patient will continue with Prozac [address] scan of the chest showed a right upper lobe 3 mm solitary nodule. This likely is benign. Recommend recheck CT scan in 6 to 12 months to monitor resolution. Patient may follow-up with pulmonology as an outpatient to further address. CT chest also showed left thyroid lobe 0.7cm hypodense nodule. This is likely benign. This can be monitored as an outpatient. Diet: AHA Activity: Fall precautions Followup: JENNIFER RODRIGUEZ [Primary Care Provider] - Time spent managing pt's care (in minutes): 55
[2020-10-20 08:47] VITALS: BP 107/59; TEMP 98.3
[2020-10-20] MEDS: ENOXAPARIN 40 MG/0.4 ML SQ SCH (09:00)
[2020-10-20] MEDS: PRAMIPEXOLE 1 MG TAB PO SCH (09:00)
[2020-10-20] MEDS: levETIRAcetam 500 MG TAB PO SCH (09:01)
[2020-10-20] MEDS: FOLIC ACID 1 MG TABLET PO SCH (09:01)
[2020-10-20] MEDS: FLUOXETINE 20 MG CAP PO SCH (09:01)
[2020-10-20] MEDS: LIDOCAINE 4% PATCH TOP SCH (09:02)
[2020-10-20 09:26] VITALS: O2SAT 97
[2020-10-21 15:51] LABS: Hepatitis C Virus RNA (PCR)log <1.18 log IU/mL
[2020-10-21 19:21] LABS: HBsAG Nonreactive (Nonreactive)
== END 2020-10-20 09:56 | disposition home or self-care (01) | DRG 393 ==
LOC: ER 20:44 → ERHOLD 10-19 00:44 → 2ND 10-19 00:56
PROVIDERS: ADMIT Family Medicine; ATTEND Family Medicine
DX: K95.89 Other complications of other bariatric procedure (principal); K72.00 Acute and subacute hepatic failure without coma; G90.1 Familial dysautonomia [Riley-Day]; M06.9 Rheumatoid arthritis, unspecified; F45.8 Other somatoform disorders; G25.81 Restless legs syndrome; K76.0 Fatty (change of) liver, not elsewhere classified; F32.9 Major depressive disorder, single episode, unspecified; O28.8 Other abnormal findings on antenatal screening of mother; J45.909 Unspecified asthma, uncomplicated; E04.1 Nontoxic single thyroid nodule; E11.9 Type 2 diabetes mellitus without complications; R79.89 Other specified abnormal findings of blood chemistry; W18.30XA Fall on same level, unspecified, initial encounter; Y84.8 Other medical procedures as the cause of abnormal reaction of the patient, or of later complication, without mention of misadventure at the time of the procedure; Z88.8 Allergy status to other drugs, medicaments and biological substances; Z90.49 Acquired absence of other specified parts of digestive tract; Z98.84 Bariatric surgery status; Z91.030 Bee allergy status; Z79.899 Other long term (current) drug therapy; Z98.51 Tubal ligation status; Z20.822 Contact with and (suspected) exposure to COVID-19
CPT/HCPCS: 36415; 70450; 71250; 72125; 74178; 80048; 80053; 80061; 80074; 80076; 80307; 80320; 80329; 81003; 82550; 82553; 82607; 82728; 82746; 82947; 83540; 83615; 83690; 83735; 84100; 84439; 84443; 84466; 84484; 85025; 85610; 85730; 86038; 86708; 87520; 87522; 93005; 93306; 94760; 96374; 96375; 97161; 99285; J1650; J2405; J3010; J7030; Q9967; U0003